=== PATIENT | female | born 1960 | race Caucasian/White ===

== ENCOUNTER 2025-04-27 17:25 | Emergency (ER) | payer MEDICARE, OTHER ==
[2025-04-27] MEDS ORDERED: Sulfameth/Trimethoprim DS 800-160mg TAB ONE (18:13)
[2025-04-27] MEDS ORDERED: Amoxicillin/Potassium Clav 875 MG TAB ONE (18:13)
== END 2025-04-27 18:28 | disposition home or self-care (01) ==
LOC: MADERS 17:25
DX: L03.116 Cellulitis of left lower limb (principal); M79.7 Fibromyalgia
CPT/HCPCS: 99283